=== PATIENT | female | born 1960 | race Hispanic/Latino ===

== ENCOUNTER 2016-10-15 07:13 | Day surgery (SDC) | payer OTHER ==
[2016-09-30 12:03] VITALS: BMI 27.7
[2016-09-30 15:08] VITALS: RESP 18
[2016-10-15 07:43] VITALS: O2SAT 99
[2016-10-15] MEDS ORDERED: Sodium Bicarbonate 4.2% Inj (Infant) ONE (09:15)
[2016-10-15] MEDS ORDERED: Lidocaine 1% Inj (20ml) ONE (09:15)
[2016-10-15] MEDS ORDERED: Lidocaine 2% w Epi 1:100,000 Inj IJ ONE (09:15)
[2016-10-15] MEDS ORDERED: Lidocaine 1% w Epi 1:100,000 Inj ONE (09:16)
--- NOTE | 2016-10-15 09:33 | CP.SDSHP ---
Same Day Surgery H & P - History Proposed Procedure: Excision of Melanoma of right shoulder and basal cell of back Pre-Op Diagnosis: Melanoma or R shoulder and Basal cell of Right back - Previous Medical/Surgical History Cardiac: Hypertension Previous Surgical History: sinus surgery - Allergies Allergies: Allergies fluconazole [From Diflucan] Adverse Reaction (Verified 09/30/16 11:51) SWELLING - Physical Exam General Appearance: NAD Vital Signs: Vital Signs 10/15/16 10/15/16 07:42 07:45 Temperature 98.2 F Pulse Rate 80 80 Respiratory 18 Rate Blood Pressure 137/84 O2 Sat by Pulse 99 Oximetry Mental Status: Alert & Oriented x3 Neuro: WNL Heart: WNL Lungs: WNL GI: WNL - {Optional Preform as Required} Breast: WNL Abdomen: WNL Integument: Other (0.5cm hyperpigmentation on R shoulder, 2cm hyperpigmentation on R back) - Impression Pt. Evaluated Today:Candidate for Anesthesia & Procedure: Yes Short Stay Discharge - Short Stay Discharge Admitting Diagnosis/Reason for Visit: D03.9/C44.91 Disposition: HOME/ ROUTINE Referrals: Eleazar Isabel MD [Primary Care Provider] - Follow-up: follow up with Dr. Lara in 1-2 weeks Pain med as needed
[2016-10-15] MEDS ORDERED: Lidocaine 1% w Epi 1:100,000 Inj INJ ONE (10:12)
[2016-10-15] MEDS ORDERED: Sodium Bicarbonate 4.2% Inj (Infant) IVP ONE (10:12)
[2016-10-15] MEDS ORDERED: Lidocaine 1% Inj (20ml) IJ ONE (10:12)
--- NOTE | 2016-10-15 11:24 | PCM.SURG1 ---
Surgeon's Initial Post Op Note - Surgeon's Notes Surgeon: Dr. Lara Template Clerk: Dr. Odell PGY1 Type of Anesthesia: Local Anesthesia Administered By: N/A Pre-Operative Diagnosis: R shoulder and Back dysplastic nevi Operative Findings: see operative report Post-Operative Diagnosis: R shoulder and Back dysplastic nevi Operation Performed: Excision of R shoulder and Back dysplastic nevi Specimen/Specimens Removed: R shoulder and Back dysplastic nevi Estimated Blood Loss: EBL {In ML}: 3 Blood Products Given: N/A Drains Used: No Drains Post-Op Condition: Good Date of Surgery/Procedure: 10/15/16 Time of Surgery/Procedure: 11:24
[2016-10-15 11:26] VITALS: BP 129/76; PULSE 82; TEMP 97.8
--- NOTE | 2016-10-23 10:07 | OP ---
PROCEDURE DATE: 10/15/2016 PREOPERATIVE DIAGNOSES: Dysplastic nevus of the right shoulder bordering on melanoma in situ and basal cell carcinoma of the back. POSTOPERATIVE DIAGNOSIS: Pending pathology. PROCEDURE: Excision of lesion of the right shoulder and of the back. SURGEON: Dr. Andrew Lara. ANESTHESIA: 1% lidocaine with epinephrine buffered by sodium bicarbonate. DESCRIPTION OF PROCEDURE: After obtaining informed consent, the patient taken to the operating room. After timeout obtained, the patient in the left lateral decubitus position, the right shoulder was prepped and draped in the usual manner. After adequate infiltration of 1% lidocaine with epinephrine, a semi-circular incision was made to encompass the previous biopsy and a good 5 mm on each side. The whole incision was approximately 2 cm long, about a centimeter wide. At this point, this was carried down through skin into subcutaneous tissue excising the lesion with its subcutaneous. At this point, making sure that hemostasis was excellent, the subcutaneous was approximated with fine chromic and the skin with Monocryl. A dressing was applied and the patient was placed in the prone position. The area was prepped and draped in the usual manner. After adequate infiltration of 1% lidocaine with epinephrine buffered by sodium bicarbonate, a semi-circular incision was made to excise the whole base itself. The basal cell by itself was a good 2 cm x 3 cm. So, the incision was a good 6 cm long and about 3 cm wide. Once this was totally excised, the deep subcutaneous was approximated with fine chromic, the subcutaneous with fine chromic and the skin with Monocryl. A dressing was applied. The patient tolerated the procedure very well and was transferred to recovery room in good general status. Andrew Lara MD
== END 2016-10-15 11:55 | disposition home or self-care (01) ==
LOC: H.OPSURG 07:13
PROVIDERS: ATTEND Surgery
DX: C44.519 Basal cell carcinoma of skin of other part of trunk (principal); D22.61 Melanocytic nevi of right upper limb, including shoulder; F32.9 Major depressive disorder, single episode, unspecified; I10 Essential (primary) hypertension

== ENCOUNTER 2017-05-28 20:05 | Emergency (ER) | payer OTHER ==
[2017-05-28 20:05] VITALS: BMI 27.7
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
[2017-05-28 20:13] VITALS: RESP 18; TEMP 98.3; O2SAT 100
[2017-05-28] MEDS ORDERED: Tdap Vaccine 0.5 ml Vial (10-64 yrs) IM ONE ×2 (20:22→21:22)
[2017-05-28] MEDS ORDERED: Amoxicillin-Clav 875-125 mg Tab PO STA (20:22)
[2017-05-28] MEDS ORDERED: Amoxicillin-Clav 875-125 mg Tab PO ONE (21:22)
[2017-05-29 00:03] VITALS: BP 138/68; PULSE 92
== END 2017-05-28 22:30 | disposition home or self-care (01) ==
LOC: H.ER 20:05
DX: S50.811A Abrasion of right forearm, initial encounter (principal); Y04.1XXA Assault by human bite, initial encounter; Y99.0 Civilian activity done for income or pay; I10 Essential (primary) hypertension; Z82.49 Family history of ischemic heart disease and other diseases of the circulatory system

== ENCOUNTER 2018-06-20 19:37 | Emergency (ER) | payer OTHER ==
[2018-06-20 19:38] VITALS: BMI 27.7
[2018-06-20 19:58] VITALS: BP 153/89; PULSE 89; RESP 16
[2018-06-20 20:38] VITALS: TEMP 97.8; O2SAT 99
--- NOTE | 2018-06-20 21:07 | ED PDOC ---
HPI: Eye Injury/Pain Time Seen by Provider: 06/20/18 19:59 Chief Complaint (Nursing): Eye Problem Chief Complaint (Provider): Eye problem History Per: Patient History/Exam Limitations: no limitations Onset/Duration Of Symptoms: Days (1x) Current Symptoms Are (Timing): Still Present Severity: Moderate Additional Complaint(s): 57 year old female with no pertinent past medical history presents to the ED for an evaluation of bilateral eye redness that started today. Patient states that yesterday she wore contact lenses for the first time in a long time, and this morning she woke up with bilateral eye tearing, pruritus, and redness to the eyes. Patient denies having eye pain, light sensitivity, foreign body sensation, or a history of diabetes. PMD: Eleazar Isabel MD Past Medical History Reviewed: Historical Data, Nursing Documentation, Vital Signs Vital Signs: Last Vital Signs Temp 97.8 F 06/20/18 20:27 Pulse 89 06/20/18 20:27 Resp 16 06/20/18 20:27 BP 153/89 H 06/20/18 20:27 Pulse Ox 99 06/20/18 20:27 MICHAEL Report Viewed: Yes - Medical History PMH: Anxiety, Arthritis, Depression, HTN Denies: Chronic Kidney Disease - Surgical History Other surgeries: sinus surgery - Family History Family History: States: CAD, Hypertension - Social History Current smoker - smoking cessation education provided: No Alcohol: None Drugs: Denies - Immunization History Hx Tetanus Toxoid Vaccination: No (not sure of last booster) - Home Medications Home Medications: Ambulatory Orders Medication Instructions Recorded Sertraline HCl [Zoloft] 50 mg PO DAILY 08/28/14 Amoxicillin/Clavulanate [Augmentin 1 tab PO BID #13 tab 05/28/17 875 MG-125 MG] Clindamycin [Cleocin] 300 mg PO TID #20 cap 05/28/17 Ciprofloxacin 0.3% [Ciloxan 0.3% 1 - 2 drop BOTHEYES Q2 #[facility] - Allergies Allergies/Adverse Reactions: Allergies Allergy/AdvReac Type Severity Reaction Status Date / Time fluconazole [From Diflucan] AdvReac SWELLING Verified 09/30/16 11:51 Review of Systems ROS Statement: Except As Marked, All Systems Reviewed And Found Negative Eyes: Positive for: Other (bilateral eye tearing, redness, pruritus). Negative for: Pain ((-) light sensitivity, (-) foreign body sensation) Physical Exam - Reviewed Nursing Documentation Reviewed: Yes Vital Signs Reviewed: Yes - Physical Exam Appears: Positive for: Well, Non-toxic, No Acute Distress Head Exam: Positive for: ATRAUMATIC, NORMOCEPHALIC Skin: Positive for: Normal Color, Warm, Dry Eye Exam: Positive for: EOMI (without pain), PERRL, Conjunctival injection (bilateral). Negative for: Periorbital swelling, Periorbital tenderness Neurological/Psych: Positive for: Awake, Alert, Oriented (3x) - ECG O2 Sat by Pulse Oximetry: 99 (RA) Pulse Ox Interpretation: Normal Medical Decision Making Medical Decision Makin:58 Initial impression: 57 year old female with conjunctivitis Scribe Attestation: Documented by Britt Merida, acting as a scribe for Tylor Cabrera Provider Scribe Attestation: All medical record entries made by the Scribe were at my direction and personally dictated by me. I have reviewed the chart and agree that the record accurately reflects my personal performance of the history, physical exam, medical decision making, and the department course for this patient. I have also personally directed, reviewed, and agree with the discharge instructions and disposition. Disposition - Clinical Impression Clinical Impression: Conjunctivitis - Patient ED Disposition Is Patient to be Admitted: No - Disposition Referrals: Anupam Mccray [Outside] Mina Gallegos MD [Staff Provider] - Disposition: Routine/Home Disposition Time: 20:20 Condition: STABLE Additional Instructions: TAQUERIA SOTO, thank you for letting us take care of you today. Your provider was Stephanie Santos MD and you were treated for B/L EYE PAIN. The emergency medical care you received today was directed at your acute symptoms. If you were prescribed any medication, please fill it and take as directed. It may take several days for your symptoms to resolve. Return to the Emergency Department if your symptoms worsen, do not improve, or if you have any other problems. Please contact your doctor or call one of the physicians/clinics you have been referred to that are listed on the Patient Visit Information form that is included in your discharge packet. Bring any paperwork you were given at discharge with you along with any medications you are taking to your follow up visit. Our treatment cannot replace ongoing medical care by a primary care provider outside of the emergency department. Thank you for allowing the [facility] team to be part of your care today. If you had an X-Ray or CT scan: A Radiologist will review the ED reading if any change in treatment is needed we will contact you. If you had a blood, urine, or wound culture: It will take several days for the results, if any change in treatment is needed we will contact you. If you had an STI test: It will take 48 hours for the results. Please call after 1 week if you have not heard back. Prescriptions: Ciprofloxacin 0.3% [Ciloxan 0.3% Ophth SOLN] 1 - 2 drop BOTHEYES Q2 #1 bottle Instructions: Conjunctivitis (Pinkeye) (DC), How to Use Eye Drops Forms: [employer] ([place]), [facility] ED School/Work Excuse
== END 2018-06-20 20:27 | disposition home or self-care (01) ==
LOC: H.ER 19:37
DX: H10.9 Unspecified conjunctivitis (principal)